=== PATIENT | female | born 2005 | race African-American/Black ===

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

== ENCOUNTER 2023-02-12 05:59 | Emergency (ER) | payer OTHER ==
[2023-02-12 06:14] VITALS: BP 99/62; PULSE 95; RESP 18; TEMP 98.3; BMI 22.3
[2023-02-12] MEDS ORDERED: FLUCONAZOLE 150 MG TABLET PO ONE ×2 (06:21→06:23)
== END 2023-02-12 06:33 | disposition home or self-care (01) ==
LOC: FER 05:59
DX: B37.31 Acute candidiasis of vulva and vagina (principal)
CPT/HCPCS: 99283-25